=== PATIENT | male | born 1955 | race Caucasian/White ===

== ENCOUNTER 2019-07-25 20:25 | Emergency (ER) | payer OTHER ==
[~2019-07-25] VITALS: Ht 175.3 cm; Wt 95.0 kg
--- NOTE | 2019-07-25 20:47 | NUR ---
TASK RN: BIB [facility] FROM HOME W/ CO N/V/DIZZINESS X TWO HOURS. INCREASED S/S W/ MOVEMENT. HX OF MENIERES DISEASE W/ SIMILAR EPISODES. REPORTS "THIS ONE IS WAY WORSE". GIVEN ZOFRAN AND [address] ROAD ROLLER OPERATOR HOT MIX WITH SOME IMPROVEMENT. VOMITING UPON ARRIVAL. DENIES CP/SOB/ABD PAIN. BP/SPO2 MONITORING IN PLACE. ON 2L BY NC FOR RA ROAD ROLLER OPERATOR HOT MIX OF 88%. 92% ON 2L. SO AT BEDSIDE.
[2019-07-25] MEDS ORDERED: MECL12.52 PO (20:50)
[2019-07-25] MEDS ORDERED: HYDR12.517 PO (20:50)
[2019-07-25] MEDS ORDERED: ATOR-2 PO (20:50)
[2019-07-25] MEDS ORDERED: ONDA4TAB7 PO (20:50)
[2019-07-25] MEDS ORDERED: PANT20TA2 PO (20:50)
--- NOTE | 2019-07-25 21:00 | NUR ---
TASK RN: PT RESTING IN ROSAGE W EYES CLOSED. EVEN/REGULAR RESPIRATIONS NOTED.
--- NOTE | 2019-07-25 21:29 | NUR ---
TASK RN: PT RESTING ON BACK. REPORTS IMPROVED S/S SINCE ARRIVAL, "IT HAS DIMINISHED SIGNIFICANTLY". EKG COMPLETED AND GIVEN TO ERP.
[2019-07-25] MEDS ORDERED: DIPHENHYDRAMINE 50 MG/ML, 1ML ONE (21:30)
[2019-07-25] MEDS ORDERED: ONDANSETRON 2MG/ML, 2ML ONE (21:30)
[2019-07-25] MEDS ORDERED: SODIUM CHLORIDE 0.9% 1,000ML IVBOLUS ONE (21:30)
[2019-07-25] MEDS ORDERED: DIPHENHYDRAMINE 50 MG/ML, 1ML IVPush ONE (21:30)
[2019-07-25] MEDS ORDERED: ONDANSETRON 2MG/ML, 2ML IVPush ONE (21:30)
--- NOTE | 2019-07-25 21:42 | NUR ---
PATIENT MEDICATED PER EMAR, TOLERATED WELL. IVF STARTED. PATIENT GOING TO CT NOW.
--- NOTE | 2019-07-25 22:14 | NUR ---
TASK RN: CALLED LAB REGARDING UNCOLLECTED LABS. STATES "WE'VE BEEN BACKED UP". ERP AND PRIMARY RN AWARE
[2019-07-25 22:51] LABS: BASOPHILS # (AUTO) 0.04 x10^3/uL (0-0.1); BASOPHILS % (AUTO) 0 % (0-1); EOSINOPHILS # (AUTO) 0.05 x10^3/uL (0-0.4); EOSINOPHILS % (AUTO) 0 % (1-7); LYMPHOCYTES # (AUTO) 1.37 x10^3/uL (1-3.4); LYMPHOCYTES % (AUTO) 10 % (22-44); MD NO; MEAN CORPUSCULAR HEMOGLOBIN 32.1 pg (27.5-34.5); MEAN CORPUSCULAR VOLUME 97.3 fL (81-97); MEAN PLATELET VOLUME 8.2 fL (7.4-10.4); MONOCYTES # (AUTO) 0.96 x10^3/uL (0.2-0.8); MONOCYTES % (AUTO) 7 % (2-9); NEUTROPHILS # (AUTO) 10.79 x10^3/uL (1.8-6.8); NEUTROPHILS % (AUTO) 82 % (42-75); PLATELET COUNT 242 x10^3/uL (130-400); RED BLOOD COUNT 4.79 x10^6/uL (4.38-5.82); RED CELL DISTRIBUTION WIDTH 13.2 % (9.4-14.8)
[2019-07-25 22:57] LABS: ALBUMIN 3.8 g/dL (3.4-5.0); ANION GAP 5 mmol/L (5-15); CALCIUM 8.9 mg/dL (8.5-10.1); CHLORIDE 110 mmol/L (98-107)
--- NOTE | 2019-07-25 22:57 | NUR ---
PATIENT RESTING ON ROSALBA ARCEO VSS, FAMILY IN ROOM, CALL LIGHT IN REACH. RESPIRATIONS EVEN AND UNLABORED. ALL MONTIROING IN PLACE. Addendum: 07/25/19 at 2257 by JENNIFER MONITORING*
[2019-07-25 23:01] LABS: CREATININE 0.89 mg/dL (0.7-1.3); TROPONIN I < 0.015 ng/mL (0.000-0.045)
--- NOTE | 2019-07-25 23:09 | NUR ---
PATIENT AMBULATORY WITH STEADY GAIT TO RESTROOM. MAINTAINS SPO2 AT 96% RA
[2019-07-25 23:10] VITALS: BP 160/73
[2019-07-26] MEDS ORDERED: SCOPOLAMINE PATCH, 1.5MG PATCH.TD72 TD ONE
== END 2019-07-26 00:09 | disposition home or self-care (01) ==
LOC: ED 22:22
DX: H81.09 Meniere's disease, unspecified ear (principal); R94.31 Abnormal electrocardiogram [ECG] [EKG]; E78.00 Pure hypercholesterolemia, unspecified
CPT/HCPCS: 36415; 70450; 80048; 82040; 84484; 85025; 93005; 96361; 96374; 96375; 99284; J1200; J2405; J7030; 96360